=== PATIENT | male | born 1985 | race Caucasian/White ===

== ENCOUNTER 2022-07-14 15:45 | Emergency (ER) | payer OTHER ==
[2022-07-14 15:56] VITALS: TEMP 97.7
[2022-07-14] MEDS ORDERED: LIDOCAINE 1% INJ 10MG/ML (30 ML VIAL-PF) SQ ONE (16:09)
[2022-07-14] MEDS ORDERED: NICOTINE 21MG/24HR PATCH TRANSDERM STA (17:21)
[2022-07-14] MEDS ORDERED: ALPRAZolam 0.25 MG TAB PO STA (17:21)
--- NOTE | 2022-07-14 17:24 | ED ---
Skin/Abscess/FB HPI - General Chief complaint: Skin/Abscess/Foreign Body Stated complaint: abcess Time Seen by Provider: 07/14/22 16:00 Source: patient Mode of arrival: ambulatory Limitations: no limitations - History of Present Illness Initial comments: Patient is a 36-year-old male presenting with chief complaint of abscess. Patient has noted a painful spot near the rectum that started yesterday. Patient was seen in urgent care today who sent him here for further evaluation. Patient states that he has had a similar issue in this area one other time, however the area resolved on its own. He is complaining of pain and swelling, denies any discharge from the area. No fevers or chills. No nausea or vomiting. No abdominal pain. No medical issues. - Related Data Previous Rx's Medication Instructions Recorded Sulfamethox-Tmp 800-160Mg [Bactrim 1 tab PO Q12HR 7 Days #14 tab 07/14/22 DS 800-160 mg] Allergies Allergy/AdvReac Type Severity Reaction Status Date / Time No Known Allergies Allergy Verified 07/14/22 16:55 Review of Systems ROS Statement: Those systems with pertinent positive or pertinent negative responses have been documented in the HPI. ROS Other: All systems not noted in ROS Statement are negative. Past Medical History Past Medical History: No Reported History History of Any Multi-Drug Resistant Organisms: None Reported Past Surgical History: No Surgical Hx Reported Past Psychological History: No Psychological Hx Reported Smoking Status: Current every day smoker Past Alcohol Use History: Occasional Past Drug Use History: Marijuana General Exam Limitations: no limitations General appearance: alert, anxious Head exam: Present: atraumatic, normocephalic, normal inspection Eye exam: Present: normal appearance Neck exam: Present: normal inspection, full ROM Neurological exam: Present: alert, oriented X3, CN II-XII intact Psychiatric exam: Present: normal affect, normal mood Expanded Type of lesion: Present: abscess (R glute, near rectum) Course Vital Signs 07/14/22 07/14/22 07/14/22 15:53 17:57 19:43 Temperature 97.7 F Pulse Rate 113 H 119 H 103 H Respiratory 18 22 18 Rate Blood Pressure 126/80 147/101 136/84 O2 Sat by Pulse 99 99 99 Oximetry Medical Decision Making - Medical Decision Making Was pt. sent in by a medical professional or institution (Dr., PA, [facility], urgent care, hospital, or longterm...) When possible be specific @ -No Did you speak to anyone other than the patient for history (EMS, parent, family, police, friend...)? What history was obtained from this source @ -Patient's girlfriend Did you review nursing and triage notes (agree or disagree)? Why? @ -I reviewed and agree with nursing and triage notes Were old charts reviewed (outside hosp., previous admission, EMS record, old EKG, old radiological studies, urgent care reports/EKG's, longterm records)? Report findings @ -No old charts were reviewed Differential Diagnosis (chest pain, altered mental status, abdominal pain women, abdominal pain men, vaginal bleeding, weakness, fever, dyspnea, syncope, headache, dizziness, GI bleed, back pain, seizure, CVA, palpatations, mental health, musculoskeletal)? @ -differential includes uncomplicated abscess, perirectal abscess, this is not an all inclusive list EKG interpreted by me (3pts min.). @ -As above X-rays interpreted by me (1pt min.). @ -None done CT interpreted by me (1pt min.). @ -Negative computed tomography scan abdomen and pelvis. Mild cutaneous edema in the medial right buttock consistent with [place]. No perirectal abscess. U/S interpreted by me (1pt. min.). @ -None done What testing was considered but not performed or refused? (CT, X-rays, U/S, labs)? Why? @ -None What meds were considered but not given or refused? Why? @ -None Did you discuss the management of the patient with other professionals (elana huerta i.e. SOY Donohue, [facility] [facility], lab, RT, psych nurse, social director, metabolic specialist, teacher, [employer] senior officer, casework specialist)? Give summary @ -No Was smoking cessation discussed for >3mins.? @ -No Was critical care preformed (if so, how long)? @ -No Were there social determinants of health that impacted care today? How? (Homelessness, low income, unemployed, alcoholism, drug addiction, transportati on, low edu. Level, literacy, decrease access to med. care, group home, rehab)? @ -No Was there de-escalation of care discussed even if they declined (Discuss DNR or withdrawal of care, Hospice)? DNR status @ -No What co-morbidities impacted this encounter? (DM, HTN, Smoking, COPD, CAD, Cancer, CVA, ARF, Chemo, Hep., AIDS, mental health diagnosis, sleep apnea, morbid obesity)? @ -None Was patient admitted / discharged? Hospital course, mention meds given and route, prescriptions, significant lab abnormalities, going to OR and other pertinent info. @ -Patient is a 36-year-old male presenting with chief complaint of abscess to the right glute. On physical examination it is in close proximity to the rectum, we will obtain CT to rule out perirectal abscess. WBC 20.8. Patient required Xanax due to anxiety as well as a nicotine patch. On my reassessment patient reports that the abscess started draining on its own. On my assessment a large amount of the fluid has been drained from the abscess, helped promote the expression of a bit more pus. Patient is educated on wound care at home with warm compresses and sitz baths. He is started on Bactrim. Follow-up with PCP. Report back to ER with any new or worsening symptoms. Discussed return parameters and answered all questions. Patient conveyed verbal understanding and agreed to the plan. I discussed this case in detail with my attending Dr. Cantor Undiagnosed new problem with uncertain prognosis? @ -No Drug Therapy requiring intensive monitoring for toxicity (Heparin, Nitro, Insulin, Cardizem)? @ -No Were any procedures done? @ -No Diagnosis/symptom? @ -Abscess Acute, or Chronic, or Acute on Chronic? @ -Acute Uncomplicated (without systemic symptoms) or Complicated (systemic symptoms)? @ -Uncomplicated Side effects of treatment? @ -No Exacerbation, Progression, or Severe Exacerbation? @ -No Poses a threat to life or bodily function? How? (Chest pain, [place], [place], pneumonia, PE, COPD, DKA, ARF, appy, cholecystitis, CVA, Diverticulitis, Homicidal, Suicid al, threat to staff... and all critical care pts) @ -No - Lab Data Result diagrams: 07/14/22 17:57 07/14/22 17:57 Lab Results 07/14/22 07/14/22 Range/Units 17:57 17:57 WBC 20.8 H (3.8-10.6) k/uL RBC 5.07 (4.30-5.90) m/uL Hgb 15.1 (13.0-17.5) gm/dL Hct 46.0 (39.0-53.0) % MCV 90.7 (80.0-100.0) fL MCH 29.8 (25.0-35.0) pg MCHC 32.9 (31.0-37.0) g/dL RDW 12.5 (11.5-15.5) % Plt Count 324 (150-450) k/uL MPV 7.3 Neutrophils % 86 % Lymphocytes % 9 % Monocytes % 4 % Eosinophils % 0 % Basophils % 0 % Neutrophils # 17.8 H (1.3-7.7) k/uL Lymphocytes # 1.8 (1.0-4.8) k/uL Monocytes # 0.9 (0-1.0) k/uL Eosinophils # 0.1 (0-0.7) k/uL Basophils # 0.1 (0-0.2) k/uL Sodium 138 (137-145) mmol/L Potassium 4.4 (3.5-5.1) mmol/L Chloride 106 (98-107) mmol/L Carbon Dioxide 20 L (22-30) mmol/L Anion Gap 12 mmol/L BUN 13 (9-20) mg/dL Creatinine 0.64 L (0.66-1.25) mg/dL Est GFR (CKD-EPI)AfAm >90 (>60 ml/min/1.73 sqM) Est GFR (CKD-EPI)NonAf >90 (>60 ml/min/1.73 sqM) Glucose 124 H (74-99) mg/dL Calcium 9.6 (8.4-10.2) mg/dL Total Bilirubin 0.5 (0.2-1.3) mg/dL AST 25 (17-59) U/L ALT 20 (4-49) U/L Alkaline Phosphatase 99 (38-126) U/L Total Protein 7.6 (6.3-8.2) g/dL Albumin 4.7 (3.5-5.0) g/dL Disposition Clinical Impression: Abscess Disposition: HOME SELF-CARE Condition: Stable Instructions (If sedation given, give patient instructions): Abscess Incision and Drainage (ED), Abscess (ED) Additional Instructions: Follow-up with PCP. Report back to ER with any new or worsening symptoms. Take medication as prescribed. Take Motrin and Tylenol as needed for pain control. Use warm compresses and sitz baths to help draw out any remaining pus. Prescriptions: Sulfamethox-Tmp 800-160Mg [Bactrim DS 800-160 mg] 1 tab PO Q12HR 7 Days #14 tab Is patient prescribed a controlled substance at d/c from ED?: No Referrals: Yesenia Ferreira MD [Primary Care Provider] - 1-2 days Time of Disposition: 19:36
[2022-07-14 18:06] LABS: Basophils # (A) 0.1 k/uL (0-0.2); Basophils % (A) 0 %; Eosinophils # (A) 0.1 k/uL (0-0.7); Eosinophils % (A) 0 %; HGB 15.1 gm/dL (13.0-17.5); Lymphocytes # (A) 1.8 k/uL (1.0-4.8); Lymphocytes % (A) 9 %; MCH 29.8 pg (25.0-35.0); MCHC 32.9 g/dL (31.0-37.0); MCV 90.7 fL (80.0-100.0); Mean Platelet Volume 7.3; Monocytes # (A) 0.9 k/uL (0-1.0); Monocytes % (A) 4 %; Neutrophils # (A) 17.8 k/uL (1.3-7.7); Neutrophils % (A) 86 %; Platelet Count 324 k/uL (150-450); RBC 5.07 m/uL (4.30-5.90); RDW 12.5 % (11.5-15.5); WBC 20.8 k/uL (3.8-10.6)
[2022-07-14 18:16] LABS: Sodium 138 mmol/L (137-145)
[2022-07-14 18:17] LABS: ALT 20 U/L (4-49); AST 25 U/L (17-59); African American GFR (CKD) >90 (>60 ml/min/1.73 sqM); Albumin 4.7 g/dL (3.5-5.0); Alkaline Phosphatase 99 U/L (38-126); Anion Gap 12 mmol/L; Blood Urea Nitrogen 13 mg/dL (9-20); Calcium 9.6 mg/dL (8.4-10.2); Carbon Dioxide 20 mmol/L (22-30); Chloride 106 mmol/L (98-107); Glucose 124 mg/dL (74-99); Non-African American GFR(CKD) >90 (>60 ml/min/1.73 sqM); Potassium 4.4 mmol/L (3.5-5.1); Total Bilirubin 0.5 mg/dL (0.2-1.3); Total Protein 7.6 g/dL (6.3-8.2)
--- NOTE | 2022-07-14 19:00 | CT ---
EXAMINATION TYPE: CT abdomen pelvis w con DATE OF EXAM: 07/14/2022 COMPARISON: None HISTORY: PERIRECTAL ABSCESS CT DLP: 575.3 mGycm Automated exposure control for dose reduction was used. CONTRAST: Performed with IV Contrast, patient injected with 100 mL of Isovue 300. Images obtained from the diaphragm to the floor the pelvis with IV contrast. The lung bases are clear. No pleural effusion. There is mild pectus excavatum chest deformity. Heart size is normal. No pericardial effusion. Liver spleen stomach pancreas gallbladder appear normal. The bile ducts are not dilated there is no adrenal mass. Kidneys show satisfactory contrast opacification. No hydronephrosis. Delay ed images show normal renal excretion. No retroperitoneal adenopathy. Bladder distends smoothly. No i nguinal hernia. No free fluid in the pelvis. No pelvic mass. There is no mesenteric edema. No ascites or free air. No sign of a bowel obstruction. Appendix not cl early seen. No sign of thickened appendix . Lumbar vertebrae have normal alignment. Posterior element are intact. No compression fracture. The bony pelvis is intact. The hip joints are intact. There is mild skin thickening in the right buttock near the midline posterior to the anus and consist ent with some focal inflammation. IMPRESSION: Negative CT scan abdomen and pelvis. Appendix not seen. Mild cutaneous edema in the medial right buttock consistent with the inflammation. No perirectal absc ess.
[2022-07-14] MEDS ORDERED: SULFAMETHOX-TMP 800-160MG 1 EACH TAB PO STA (19:36)
[2022-07-14 19:43] VITALS: BP 136/84; PULSE 103; RESP 18
== END 2022-07-14 19:54 | disposition home or self-care (01) ==
LOC: EC 15:45
DX: K61.1 Rectal abscess (principal); F12.90 Cannabis use, unspecified, uncomplicated; F17.200 Nicotine dependence, unspecified, uncomplicated
CPT/HCPCS: 36415; 80053; 85025; 74177; 99284; S4990; J2001; Q9967

== ENCOUNTER → 2024-04-22 | Outpatient (CLI) | payer OTHER ==
--- NOTE | 2024-04-22 10:58 | XR ---
EXAMINATION TYPE: XR elbow complete RT DATE OF EXAM: 04/22/2024 10:42 AM COMPARISON: None. CLINICAL INDICATION: Male, 38 years old with history of LATERAL EPICONDYLITIS, RIGHT ELBOW M77.11, p ain TECHNIQUE: 3 view(s) obtained. FINDINGS: No acute fracture or dislocation evident. Radius aligns normally with the humerus. Anterior fat pad i s normal. No elevation of posterior fat pad is evident which is normal. Soft tissues appear normal. If closer evaluation for lateral epicondylitis would be of benefit, MRI could be performed. IMPRESSION: 1. No acute osseous abnormality right elbow [facility] Eula De Paz, , 04/22/2024 10:56 AM
== END | disposition home or self-care (01) ==
LOC: RADXRMAIN 10:08
PROVIDERS: ATTEND Emergency Medicine
DX: M77.11 Lateral epicondylitis, right elbow (principal)